=== PATIENT | male | born 1950 | race Caucasian/White ===

== ENCOUNTER 2020-06-21 21:33 | Emergency (ER) | payer MEDICARE, SELFPAY ==
[2020-06-21 21:40] VITALS: BP 196/102; PULSE 70; RESP 18; TEMP 36.3; O2SAT 96; BMI 23.0
--- NOTE | 2020-06-21 22:02 | W.ED.FALL ---
Documented by User: MERLY Kasper 06/22/20 00:28 HPI - Fall General: Chief Complaint: Fall Stated Complaint: FELL/FACE PLANTED-NOSE BLEEDING, FACIAL BLEEDING Time Seen by Provider: 06/21/20 22:02 Source: patient Mode of arrival: ambulatory Limitations: no limitations History of Present Illness: HPI Narrative: Patient is a nice 70-year-old male who presents to ED today along with his for complaints of a fall and facial injury. Patient tells me he accidentally tripped and fell and landed directly on his face. No LOC. He takes Plavix daily. He does not complain of a headache or visual changes. No neck pain. complaint: fall Onset (ago): hour(s) Fall from: standing Fall witnessed: yes, by family Place fall occurred: home Loss of consciousness: None Prolonged down time: no Symptoms prior to fall: none Context: tripped/slipped Location of injury: face Associated symptoms-after fall: Reports no associated symptoms; Denies chest pain, headache(s) or neck pain Review of Systems Const: Denies: fever(s) Eyes: Denies: change in vision, blurry vision, photophobia, floaters or seeing flashes ENMT: Reports: epistaxis (current nose bleed) and sinus pain; Denies: throat pain, odynophagia or ear or mastoid pain Card: Denies: chest pain Resp: Denies: dyspnea GI: Denies: nausea or vomiting Musc: Denies: neck pain or back pain Neuro: Denies: headache(s), numbness in extremities, weakness in extremities or sensory changes [facility] ED PFSH: Medical History (Updated 06/21/20 @ 23:42 by MERLY Kasper) CAD (coronary artery disease) HTN (hypertension) with goal to be determined Systolic heart failure Surgical History S/P PTCA (percutaneous transluminal coronary angioplasty) Social History Smoking and tobacco status: current every day smoker Physical Exam Const: COMMON NORMALS: no acute distress, average body habitus, patient oriented x3, no limitations, healthy appearing, alert and well nourished GENERAL APPEARANCE: cooperative ORIENTATION/CONSCIOUSNESS: Yes awake, Yes oriented to person, Yes oriented to place and Yes oriented to time HENMT: COMMON NORMALS: normocephalic, hearing grossly normal bilaterally, external ears normal, EAC's normal and TM's normal bilaterally HEAD & SCALP: normocephalic FACE & SINUS: other (see below) NOSE: Epistaxis present EXTERNAL EAR: Yes external ears normal EXTERNAL AUDITORY CANAL: EAC's normal TYMPANIC MEMBRANE: TM's normal bilaterally TEETH & GINGIVA: Yes edentulous and Yes other (bilateral upper and lower gingival contusions) OTHER: pt has nasal swelling/contusion; he has mild abrasions to central forehead and bridge on nose; he has fresh blood to R nare but no active bleeding; no septal hematoma; he has bilateral inferior orbital ecchymosis; one small 2mm upper lip laceration that normally would not require repair but one stitch placed to help with oozing; edentulous and has fairly significant gingival contusions but no intraoral injury/laceration noted Eye: COMMON NORMALS: Equal, round and reactive pupils present and EOMs intact bilaterally GENERAL EYE: normal light reflex VISUAL ACUITY: Yes acuity normal PERIORBITAL: periorbital findings abnormal (bilateral inferior ecchymosis ) PUPIL: Yes Equal, round and reactive pupils present DIRECT OPHTHALMOSCOPY: Yes normal light reflex OTHER: no globe injury present Neck/C-Spine: COMMON NORMALS: full ROM CERVICAL SPINE: Yes cervical ROM normal, No pain with cervical ROM and No Cervical spine tenderness Neuro: HUY COMA SCALE: document GCS findings Huy coma scale eye opening: Spontaneous Huy coma scale verbal response: Orientated Huy coma scale motor response: Obey commands Pettigrew coma scale total score: 15 COMMON NORMALS: patient oriented x3 SENSORIUM/ORIENTATION: Yes alert, Yes oriented to person, Yes oriented to place and Yes oriented to time Course Vital Signs: Vital signs: Vital Signs Temperature 98.1 F 06/21/20 22:41 Pulse Rate 70 06/21/20 23:00 Respiratory Rate 16 06/21/20 23:26 Blood Pressure 233/115 06/21/20 22:41 Pulse Oximetry 98 06/21/20 23:59 MDM - Fall MDM Narrative: Medical decision making narrative: Bleeding controlled. Discussed CT findings with Dr. Sahu who agrees patient is stable for outpatient follow-up with ENT/Dr. Cueto. He is not having any difficulty breathing or swallowing. Discussed using ice to face to help with swelling and oozing. Will cover with antibiotics. Information placed with case management. Strict return to ED precautions given. Imaging Data^: CT Head: Radiologist's impression: [address] [address] [address] Scan Report Signed Patient: Bolivar Combs Unit #: [id number] : 1950 Age/Sex: 70 / M ADM Date: 06/21/20 Loc: ER Room/Bed: Attending Dr: Ordering Provider/Ordering MD: Sarina Shields Date of Service: 06/21/20 Procedure(s): CT head wo con* [id number] Accession Number(s): [id number] Report Number: [id number] PROCEDURE INFORMATION: Exam: CT Head Without Contrast Exam date and time: 06/21/2020 10:15 PM Age: 70 years old Clinical indication: Injury or trauma; Blunt trauma (contusions or hematomas); Patient HX: Fall-face planted, nose bleed, bruising around bilateral eyes, hematoma on forehead; Additional info: Trauma/fall TECHNIQUE: Imaging protocol: Computed tomography of the head without contrast. Radiation optimization: All CT scans at this facility use at least one of these dose optimization techniques: automated exposure control; mA and/or kV adjustment per patient size (includes targeted exams where dose is matched to clinical indication); or iterative reconstruction. COMPARISON: CT head wo con* [id number] 11/10/2018 5:38 PM RADIATION DOSE METRICS: Total DLP (mGy-cm): 924.82 FINDINGS: Brain: There is moderate cerebral atrophy. There is marked diffuse heterogeneity of the white matter attenuation, consistent with severe chronic white matter ischemic changes. No intracranial hemorrhage. No midline shift of brain. No cerebral sulcal effacement. Yip matter and white matter interfaces are preserved. Cerebral ventricles: No ventriculomegaly. Bones/joints: Depressed, bilateral nasal bone fracture deformities. Angulated fractures of the osseous nasal septum. Paranasal sinuses: Scattered hemorrhage in the paranasal sinuses. Mastoid air cells: Visualized mastoid air cells are well aerated. Soft tissues: Small focal hematoma in the frontal scalp to the right of midline. Nasal cavity: Diffuse fluid and hemorrhage in the nasal passageways in the posterior nasopharynx. CT/CT head wo con* [id number] IMPRESSION: 1. Negative for intracranial hemorrhage. 2. Nasal bone fractures and osseous nasal septal fracture with frontal scalp hematoma and hemorrhage within paranasal sinuses as well nasal passageways extending into the posterior nasopharynx. Radiation Dose CTDIVOL = (mGy): DLP = 924.82 (mGy-cm) Dictated By: Arturo Raman Signed By: Arturo Raman Signed Date/Time: 06/21/202252 DD/ 50 CT cervical : Radiologist's impression: [address] [address] [address] Scan Report Signed Patient: Bolivar Combs Unit #: [id number] : 1950 Age/Sex: 70 / M ADM Date: 06/21/20 Loc: ER Room/Bed: Attending Dr: Ordering Provider/Ordering MD: Sarina Shields Date of Service: 06/21/20 Procedure(s): CT cervical spin wo con* [id number] Accession Number(s): [id number] Report Number: [id number] PROCEDURE INFORMATION: Exam: CT Cervical Spine Without Contrast Exam date and time: 06/21/2020 10:15 PM Age: 70 years old Clinical indication: Injury or trauma; Blunt trauma; Injury details: Fall-face planted, nose bleed, bruising around bilateral eyes, hematoma on forehead; Additional info: Trauma/fall TECHNIQUE: Imaging protocol: Computed tomography images of the cervical spine without contrast. Radiation optimization: All CT scans at this facility use at least one of these dose optimization techniques: automated exposure control; mA and/or kV adjustment per patient size (includes targeted exams where dose is matched to clinical indication); or iterative reconstruction. COMPARISON: CTA Head/Neck [id number] 11/10/2018 7:40 PM RADIATION DOSE METRICS: Total DLP (mGy-cm): 391.49 FINDINGS: Vertebrae: No cervical spine fractures. Unremarkable alignment.The cervical spine demonstrates marked degenerative changes at multiple levels. Soft tissues: Unremarkable. Sinuses: Hemorrhage within the sphenoid sinus. Nasopharynx: Hemorrhage within the nasal passageways and the posterior nasopharynx. Vasculature: Bilateral carotid artery bulb region atherosclerotic calcifications. Lungs: Lung apices are normal. CT/CT cervical spin wo con* [id number] IMPRESSION: No acute cervical spine fracture. Radiation Dose CTDIVOL = (mGy): DLP = 391.49 (mGy-cm) Dictated By: Arturo Raman Signed By: Arturo Raman Signed Date/Time: 06/21/202255 DD/ 53 CT facial : Radiologist's impression: [address] [address] [address] Scan Report Signed Patient: Bolivar Combs Unit #: [id number] : 1950 Age/Sex: 70 / M ADM Date: 06/21/20 Loc: ER Room/Bed: Attending Dr: Ordering Provider/Ordering MD: Sarina Shields Date of Service: 06/21/20 Procedure(s): CT facial bones wo con* [id number] Accession Number(s): [id number] Report Number: [id number] PROCEDURE INFORMATION: Exam: CT Maxillofacial Without Contrast Exam date and time: 06/21/2020 10:15 PM Age: 70 years old Clinical indication: Injury or trauma; Blunt trauma (contusions or hematomas); Forehead and nose and orbit/periorbital and maxilla; Patient HX: Fall-face planted, nose bleed, bruising around bilateral eyes, hematoma on forehead; Additional info: Trauma/fall TECHNIQUE: Imaging protocol: Computed tomography images of the face without contrast. Radiation optimization: All CT scans at this facility use at least one of these dose optimization techniques: automated exposure control; mA and/or kV adjustment per patient size (includes targeted exams where dose is matched to clinical indication); or iterative reconstruction. COMPARISON: No relevant prior studies available. RADIATION DOSE METRICS: Total DLP (mGy-cm): 815.11 FINDINGS: Orbital cavity: Negative for orbital injury. Bones/joints: Depressed bilateral nasal bone fracture deformities. Angulated osseous nasal septal fracture deformity. No fractures of the mandible. Temporomandibular joints have unremarkable alignment. Maxillary sinus maria are grossly intact. Orbital maria are intact. Paranasal sinuses: Scattered hemorrhage in the paranasal sinuses. Soft tissues: Small focal frontal scalp hematoma to the right of midline. Brain: Moderately atrophic brain parenchyma. Nasal cavity: Hemorrhage in the nasal passageways. Nasopharynx: Hemorrhage in the posterior nasopharynx. CT/CT facial bones wo con* [id number] IMPRESSION: Acute nasal bone fractures and osseous nasal septal fracture. Radiation Dose CTDIVOL = (mGy): DLP = 815.11 (mGy-cm) Dictated By: Arturo Raman Signed By: Arturo Raman Signed Date/Time: 06/21/202254 DD/ 52 Discharge Plan Discharge Patient Disposition: Home Clinical Impression: Fracture of nasal septum Qualifiers: Encounter type: initial encounter Fracture type: closed Qualified Code(s): S02.2XXA - Fracture of nasal bones, initial encounter for closed fracture Closed fracture nasal bone Qualifiers: Encounter type: initial encounter Qualified Code(s): S02.2XXA - Fracture of nasal bones, initial encounter for closed fracture Condition: Stable Prescriptions: New hydrocodone-acetaminophen 5-325 mg tablet 1 tab PO Q4H PRN (Reason: pain) Qty: 20 RF: 0 Augmentin 875-125 mg tablet 1 tab PO Q12H 7 Days Qty: 14 RF: 0 No Action aspirin [Adult Low Dose Aspirin] 81 mg tablet,delayed release (DR/EC) 81 mg PO DAILY RF: 0 magnesium oxide 400 mg magnesium capsule 400 mg PO DAILY RF: 0 nitroglycerin [Nitrostat] 0.4 mg tablet, sublingual 0.4 mg SUBLINGUAL Q5M PRNRF: 0 escitalopram oxalate 10 mg tablet 10 mg PO DAILY RF: 0 valsartan 160 mg tablet 160 mg PO BID Qty: 180 RF: 3 simvastatin [Zocor] 40 mg tablet 40 mg PO QDAY Qty: 90 RF: 3 potassium chloride [Klor-Con 10] 10 mEq tablet extended release 20 meq PO DAILY Qty: 180 RF: 3 carvedilol [Coreg] 12.5 mg tablet 6.25 mg PO BID Qty: 90 RF: 3 furosemide 40 mg tablet 40 mg PO DAILY Qty: 90 RF: 3 clopidogrel 75 mg tablet 75 mg PO DAILY Qty: 90 RF: 1 Discharge Orders: Discharge ED (Routine); Ordered 06/21/20 Ordered By: Sarina Shields Referrals: José Luis Cueto MD [Physician] - Blue Ricks MD [Primary Care Provider] - Patient Instructions: Nasal Fracture (ED) Activity Restrictions/Additional Instructions: You need to apply ice to your nose and face as much as possible to help with swelling and bleeding. Case management should contact you on Wednesday to set you up with ENT/Dr. Cueto. You need to return to the emergency department immediately for uncontrollable bleeding, severe headache, trouble swallowing, trouble breathing, or any other concerns you may have. Coding Level of Care Code ED Jig Borer for Chg Fwd Exam Detailed Documented by User: Jd Sahu DO 06/22/20 05:25 HPI - Fall General: Chief Complaint: Fall Stated Complaint: FELL/FACE PLANTED-NOSE BLEEDING, FACIAL BLEEDING Time Seen by Provider: 06/21/20 22:02 [facility] ED PFSH: Medical History (Updated 06/21/20 @ 23:42 by MERLY Kasper) CAD (coronary artery disease) HTN (hypertension) with goal to be determined Systolic heart failure Surgical History S/P PTCA (percutaneous transluminal coronary angioplasty) Social History Smoking and tobacco status: current every day smoker Course Vital Signs: Vital signs: Vital Signs Temperature 98.1 F 06/21/20 22:41 Pulse Rate 70 06/21/20 23:00 Respiratory Rate 16 06/21/20 23:26 Blood Pressure 233/115 06/21/20 22:41 Pulse Oximetry 98 06/21/20 23:59 MDM - Fall MDM Narrative: Medical decision making narrative: 70-year-old male seen by Mrs. Shields?QUYEN Dee. I agree with her history, work-up, and treatment. This patient will be referred as an outpatient to ENT surgery. Discharge Plan Discharge Patient Disposition: Home Clinical Impression: Fracture of nasal septum Qualifiers: Encounter type: initial encounter Fracture type: closed Qualified Code(s): S02.2XXA - Fracture of nasal bones, initial encounter for closed fracture Closed fracture nasal bone Qualifiers: Encounter type: initial encounter Qualified Code(s): S02.2XXA - Fracture of nasal bones, initial encounter for closed fracture Condition: Stable Prescriptions: New hydrocodone-acetaminophen 5-325 mg tablet 1 tab PO Q4H PRN (Reason: pain) Qty: 20 RF: 0 Augmentin 875-125 mg tablet 1 tab PO Q12H 7 Days Qty: 14 RF: 0 No Action aspirin [Adult Low Dose Aspirin] 81 mg tablet,delayed release (DR/EC) 81 mg PO DAILY RF: 0 magnesium oxide 400 mg magnesium capsule 400 mg PO DAILY RF: 0 nitroglycerin [Nitrostat] 0.4 mg tablet, sublingual 0.4 mg SUBLINGUAL Q5M PRNRF: 0 escitalopram oxalate 10 mg tablet 10 mg PO DAILY RF: 0 valsartan 160 mg tablet 160 mg PO BID Qty: 180 RF: 3 simvastatin [Zocor] 40 mg tablet 40 mg PO QDAY Qty: 90 RF: 3 potassium chloride [Klor-Con 10] 10 mEq tablet extended release 20 meq PO DAILY Qty: 180 RF: 3 carvedilol [Coreg] 12.5 mg tablet 6.25 mg PO BID Qty: 90 RF: 3 furosemide 40 mg tablet 40 mg PO DAILY Qty: 90 RF: 3 clopidogrel 75 mg tablet 75 mg PO DAILY Qty: 90 RF: 1 Discharge Orders: Discharge ED (Routine); Ordered 06/21/20 Ordered By: Sarina Shields Referrals: José Luis Cueto MD [Physician] - Blue Ricks MD [Primary Care Provider] - Patient Instructions: Nasal Fracture (ED) Activity Restrictions/Additional Instructions: You need to apply ice to your nose and face as much as possible to help with swelling and bleeding. Case management should contact you on Wednesday to set you up with ENT/Dr. Cueto. You need to return to the emergency department immediately for uncontrollable bleeding, severe headache, trouble swallowing, trouble breathing, or any other concerns you may have. Coding Level of Care Code ED Jig Borer for Chg Fwd Exam Detailed
--- NOTE | 2020-06-21 22:09 | CTR_ITS ---
PROCEDURE INFORMATION: Exam: CT Head Without Contrast Exam date and time: 06/21/2020 10:15 PM Age: 70 years old Clinical indication: Injury or trauma; Blunt trauma (contusions or hematomas); Patient HX: Fall-face planted, nose bleed, bruising around bilateral eyes, hematoma on forehead; Additional info: Trauma/fall TECHNIQUE: Imaging protocol: Computed tomography of the head without contrast. Radiation optimization: All CT scans at this facility use at least one of these dose optimization techniques: automated exposure control; mA and/or kV adjustment per patient size (includes targeted exams where dose is matched to clinical indication); or iterative reconstruction. COMPARISON: CT head wo con* [id number] 11/10/2018 5:38 PM RADIATION DOSE METRICS: Total DLP (mGy-cm): 924.82 FINDINGS: Brain: There is moderate cerebral atrophy. There is marked diffuse heterogeneity of the white matter attenuation, consistent with severe chronic white matter ischemic changes. No intracranial hemorrhage. No midline shift of brain. No cerebral sulcal effacement. Yip matter and white matter interfaces are preserved. Cerebral ventricles: No ventriculomegaly. Bones/joints: Depressed, bilateral nasal bone fracture deformities. Angulated fractures of the osseous nasal septum. Paranasal sinuses: Scattered hemorrhage in the paranasal sinuses. Mastoid air cells: Visualized mastoid air cells are well aerated. Soft tissues: Small focal hematoma in the frontal scalp to the right of midline. Nasal cavity: Diffuse fluid and hemorrhage in the nasal passageways in the posterior nasopharynx. CT/CT head wo con* [id number] IMPRESSION: 1. Negative for intracranial hemorrhage. 2. Nasal bone fractures and osseous nasal septal fracture with frontal scalp hematoma and hemorrhage within paranasal sinuses as well nasal passageways extending into the posterior nasopharynx. Radiation Dose CTDIVOL = (mGy): DLP = 924.82 (mGy-cm)
--- NOTE | 2020-06-21 22:09 | CTR_ITS ---
PROCEDURE INFORMATION: Exam: CT Maxillofacial Without Contrast Exam date and time: 06/21/2020 10:15 PM Age: 70 years old Clinical indication: Injury or trauma; Blunt trauma (contusions or hematomas); Forehead and nose and orbit/periorbital and maxilla; Patient HX: Fall-face planted, nose bleed, bruising around bilateral eyes, hematoma on forehead; Additional info: Trauma/fall TECHNIQUE: Imaging protocol: Computed tomography images of the face without contrast. Radiation optimization: All CT scans at this facility use at least one of these dose optimization techniques: automated exposure control; mA and/or kV adjustment per patient size (includes targeted exams where dose is matched to clinical indication); or iterative reconstruction. COMPARISON: No relevant prior studies available. RADIATION DOSE METRICS: Total DLP (mGy-cm): 815.11 FINDINGS: Orbital cavity: Negative for orbital injury. Bones/joints: Depressed bilateral nasal bone fracture deformities. Angulated osseous nasal septal fracture deformity. No fractures of the mandible. Temporomandibular joints have unremarkable alignment. Maxillary sinus maria are grossly intact. Orbital maria are intact. Paranasal sinuses: Scattered hemorrhage in the paranasal sinuses. Soft tissues: Small focal frontal scalp hematoma to the right of midline. Brain: Moderately atrophic brain parenchyma. Nasal cavity: Hemorrhage in the nasal passageways. Nasopharynx: Hemorrhage in the posterior nasopharynx. CT/CT facial bones wo con* [id number] IMPRESSION: Acute nasal bone fractures and osseous nasal septal fracture. Radiation Dose CTDIVOL = (mGy): DLP = 815.11 (mGy-cm)
--- NOTE | 2020-06-21 22:09 | CTR_ITS ---
PROCEDURE INFORMATION: Exam: CT Cervical Spine Without Contrast Exam date and time: 06/21/2020 10:15 PM Age: 70 years old Clinical indication: Injury or trauma; Blunt trauma; Injury details: Fall-face planted, nose bleed, bruising around bilateral eyes, hematoma on forehead; Additional info: Trauma/fall TECHNIQUE: Imaging protocol: Computed tomography images of the cervical spine without contrast. Radiation optimization: All CT scans at this facility use at least one of these dose optimization techniques: automated exposure control; mA and/or kV adjustment per patient size (includes targeted exams where dose is matched to clinical indication); or iterative reconstruction. COMPARISON: CTA Head/Neck [id number] 11/10/2018 7:40 PM RADIATION DOSE METRICS: Total DLP (mGy-cm): 391.49 FINDINGS: Vertebrae: No cervical spine fractures. Unremarkable alignment.The cervical spine demonstrates marked degenerative changes at multiple levels. Soft tissues: Unremarkable. Sinuses: Hemorrhage within the sphenoid sinus. Nasopharynx: Hemorrhage within the nasal passageways and the posterior nasopharynx. Vasculature: Bilateral carotid artery bulb region atherosclerotic calcifications. Lungs: Lung apices are normal. CT/CT cervical spin wo con* [id number] IMPRESSION: No acute cervical spine fracture. Radiation Dose CTDIVOL = (mGy): DLP = 391.49 (mGy-cm)
[2020-06-21] MEDS: tetanus-diphtheria tox (adult) 0.5 mL SDV IM (22:35)
[2020-06-21 22:41] VITALS: BP 233/115; PULSE 70; RESP 16; TEMP 36.7; O2SAT 96
[2020-06-21 23:00] VITALS: PULSE 70; O2SAT 94
[2020-06-21 23:26] VITALS: RESP 16
[2020-06-21] MEDS: morphine 4 mg/mL SDV 1 mL IM (23:26)
[2020-06-21] MEDS: HYDROcodone-acetaminophen 5-325 mg Tablet 2 TAB PO (23:58)
[2020-06-21 23:59] VITALS: O2SAT 98
--- NOTE | 2020-06-24 12:20 | DCPLANNER ---
import customer service manager had message to schedule a follow up appointment for patient with Dr. Cueto, ENT for a fracture of nasal septum. import customer service manager emailed patients information to Ruby Gonzalez and Mercedes at [facility] ENT, General Surgery. Patients information will be printed and reviewed. Clinic will call patient with appointment information.
--- NOTE | 2020-06-26 08:00 | DCPLANNER ---
Patient had a follow up appointment scheduled for 06.25.20 with ENT, Dr. Cueto - patient attended appointment.
== END 2020-06-22 | disposition home or self-care (01) ==
PROVIDERS: Emergency Provider Physician Assistant; PCP Family Medicine
DX: S02.2XXA Fracture of nasal bones, initial encounter for closed fracture (principal); Z79.02 Long term (current) use of antithrombotics/antiplatelets; Z79.82 Long term (current) use of aspirin; W01.198A Fall on same level from slipping, tripping and stumbling with subsequent striking against other object, initial encounter; I25.10 Atherosclerotic heart disease of native coronary artery without angina pectoris; I11.0 Hypertensive heart disease with heart failure; I50.20 Unspecified systolic (congestive) heart failure; Z23 Encounter for immunization
CPT/HCPCS: 70450; 70486; 72125; 90471; 90714; 96372; 99283; J2270

== ENCOUNTER 2020-06-27 22:34 | Emergency (ER) | payer MEDICARE, SELFPAY ==
[2020-06-27 22:41] VITALS: BP 221/100; PULSE 69; RESP 18; TEMP 37; O2SAT 98; BMI 22.0
[2020-06-27 23:19] LABS: Basophils % 0.6 %; Eosinophils # 0.2 10^3/uL (0.0-0.8); Eosinophils % 3.2 %; Hematocrit 36.9 % (42.0-52.0); Hemoglobin 12.5 g/dL (11.7-16.6); Lymphocytes # 2.3 10^3/uL (0.8-4.8); Lymphocytes % 35.2 %; Mean Corpuscular HGB Conc 33.9 g/dL (30.0-36.0); Mean Corpuscular Hemoglobin 30.3 pg (28.0-34.0); Mean Corpuscular Volume 89.6 fL (80-94); Mean Platelet Volume 10.5 fL (7.4-10.4); Monocytes # 0.7 10^3/uL (0.2-0.9); Monocytes % 11.3 %; Neutrophils # 3.17 10^3/uL (1.8-7.7); Neutrophils % 49.1 %; Nucleated Red Blood Cells % 0 %; Platelet Count 245 10^3/cmm (130-400); Red Blood Count 4.12 10^6/uL (4.1-5.3); Red Cell Distribution Width 13.1 % (12.1-15.1); White Blood Count 6.5 10^3/uL (4.0-10.0)
[2020-06-27] MEDS: oxymetazoline 0.05% Nasal Spray 15 mL 2 SPRAY NOSTRIL-B (23:24)
[2020-06-27] MEDS: sodium chloride 0.9% 1,000 ML 150 ML IV (23:24)
[2020-06-27 23:32] LABS: INR 1.05 (0.8-1.2)
[2020-06-27 23:33] LABS: Partial Thromboplastin Time 30.5 SECONDS (23.9-36.7)
[2020-06-27 23:38] LABS: Alanine Aminotransferase 24 U/L (0-41); Alkaline Phosphatase 81 IU/L (40-130); Anion Gap 11.4 (5-19); Aspartate Amino Transferase 30 U/L (0-40); Blood Urea Nitrogen 11 mg/dL (8-23); Calcium 8.6 mg/dL (8.5-10.5); Carbon Dioxide 32 mmol/L (22-29); Chloride 101 mmol/L (98-107); Globulin 2.5 g/dL (1.3-4.6); Glomerular Filtration Rate 66.4 mL/min (90-130); Glucose 100 mg/dL (65-115); Osmolality Calculated 291 mOsm/kg (285-295); Potassium 3.4 mmol/L (3.5-5.1); Sodium 141 mmol/L (136-145); Total Bilirubin 0.7 mg/dL (0.15-1.2); Total Protein 6.5 g/dL (6.6-8.7)
--- NOTE | 2020-06-27 23:45 | W.ED.EPISTAX ---
HPI - Epistaxis General: Chief complaint: Epistaxis Stated complaint: FALL EARS AND NOSE BLEEDS Time Seen by Provider: 06/27/20 23:08 Source: patient and family Mode of arrival: ambulatory Limitations: no limitations History of Present Illness: HPI Narrative: 70-year-old male patient presents to the emergency department with nosebleed and left ear bleed. He sustained a fall approximately 1 week ago, sustained nasal fractures, scheduled for surgery next Wednesday with Dr. Cueto -he reports perforated left eardrum. He did not sustain a fall tonight, denies recent injury. He states was leaning over a gate when his nose started to bleed. He states was to stop his aspirin and Plavix but forgot to take them out of his pillbox. He states his last dose was today. Nosebleed started at 1630 today MD complaint: epistaxis Location: bilateral nostril Duration: constant Context: history of previous, aspirin use and other anticoagulant use Associated symptoms: Reports no associated symptoms; Deny fever(s), headache(s) or vomiting Treatment prior to arrival: nose pinching Review of Systems General: Reports: 10 or more systems reviewed and unremarkable except in HPI and below Const: Denies: fever(s), chills or diaphoresis Eyes: Denies: blurry vision or eye redness ENMT: Reports: ear discharge and epistaxis; Denies: throat pain, dental pain, ear or mastoid pain, disequilibrium, nasal congestion or post nasal drip Card: Denies: chest pain, palpitations or irregular heart rhythm Resp: Denies: dyspnea, productive cough, non-productive cough or wheezing GI: Denies: abdominal pain, nausea or vomiting : Denies: dysuria Musc: Denies: neck pain, back pain, joint pain or joint warmth Skin/Breast: Denies: rash or pruritus Neuro: Denies: headache(s), weakness in extremities or behavioral changes Psych: Denies: anxiety, depression or change in appetite Tee/Lymph: Denies: easy bruising [facility] ED PFSH: Medical History (Updated 06/28/20 @ 01:49 by LEON Church) CAD (coronary artery disease) HTN (hypertension) with goal to be determined Systolic heart failure Surgical History S/P PTCA (percutaneous transluminal coronary angioplasty) Social History Smoking and tobacco status: current every day smoker Physical Exam Const: COMMON NORMALS: no acute distress, patient oriented x3, alert and well nourished GENERAL APPEARANCE: cooperative, comfortable, well kempt, frail appearing and well hydrated; not anxious and not ill appearing NUTRITIONAL APPEARANCE: thin ORIENTATION/CONSCIOUSNESS: Yes awake, Yes oriented to person, Yes oriented to place and Yes oriented to time HENMT: COMMON NORMALS: normocephalic, atraumatic and hearing grossly normal bilaterally HEAD & SCALP: normal to inspection, normocephalic and atraumatic FACE & SINUS: sinuses nontender, face symmetric, abrasion (nose) and ecchymosis bilaterally NOSE: Epistaxis present bilaterally EXTERNAL AUDITORY CANAL: Abnormal EAC present EAC laterality: left Details: otic discharge Details: bloody TYMPANIC MEMBRANE: TM normal on the right MOUTH: lip normal and tongue normal; no drooling and no muffled voice THROAT: uvula midline, postnasal drainage and other (bleeding from posterior epistaxis) Eye: COMMON NORMALS: Equal, round and reactive pupils present and EOMs intact bilaterally GENERAL EYE: appearance normal, both eyes and all related structures PUPIL: Yes Equal, round and reactive pupils present Neck/C-Spine: COMMON NORMALS: full ROM and no lymphadenopathy GENERAL: Yes normal visual inspection and Yes trachea midline CERVICAL SPINE: Yes cervical ROM normal Lymph: LYMPHATIC: no lymphadenopathy noted Chest: COMMONS NORMALS: normal inspection of the chest and normal palpation of entire chest wall Resp: COMMON NORMALS: normal respiratory effort, No retractions, No use of accessory muscles and clear to auscultation bilaterally EFFORT & INSPECTION: Yes able to speak in complete sentences AUSCULTATION: clear to auscultation bilaterally Cardio: COMMON NORMALS: regular rate, regular rhythm, S1 normal heart sound present, S2 normal heart sound present and Peripheral pulses 2+ throughout RATE: regular rate RHYTHM: regular rhythm HEART SOUNDS: S1 normal heart sound present and S2 normal heart sound present PERIPHERAL PULSES: Peripheral pulses 2+ throughout GI: COMMON NORMALS: Soft to palpation and non-tender INSPECTION: Yes normal to inspection PALPATION: Yes Soft to palpation : COMMON NORMALS: Yes no CVA tenderness BLADDER/KIDNEY EXAM: Yes no CVA tenderness Back/Pelvis: COMMON NORMALS: no CVA tenderness and thoracic and lumbar spine normal to inspection Extremity: COMMON NORMALS: normal to inspection and capillary refill normal Neuro: COMMON NORMALS: patient oriented x3 and no focal motor deficits SENSORIUM/ORIENTATION: Yes alert, Yes oriented to person, Yes oriented to place and Yes oriented to time Psych: COMMON NORMALS: mental status grossly normal, Normal thought process present and cooperative APPEARANCE: Yes well kempt ACTIVITY/MOTOR BEHAVIOR: Yes appropriate eye contact THOUGHT PROCESS: Normal thought process present Skin: COMMON NORMALS: no rashes or lesions noted and turgor normal GENERAL SKIN EXAM: no rashes or lesions noted and turgor normal Course ED course: 70-year-old male patient presents to the emergency department with nosebleed. Recent evaluation in the ED for nasal fractures with ENT follow-up -sudden onset of spontaneous bleeding that started today at 1630. CBC was normal, chemistry unremarkable, he remains on Augmentin for prophylactic antibiotic. Afrin spray did not stop bleeding, nasal tampon with difficult insertion, Dr. Juan evaluated the patient in the ED with continued difficulty with insertion of anterior/posterior Rhino. Packing attempted but unsuccessful, TXA was administered in the ED IV per Dr. Juan, bleeding very minimal after administration of medication. He did not complain of chest pain. Blood pressure was found to be elevated, he was treated with hydralazine. Patient states has a appointment with cardiology next week due to continued hypertension. Patient was advised to stop aspirin and Plavix. He is scheduled for surgery on Wednesday. 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 Advised Afrin spray to stop bleeding but states will probably not help, advised to ensure patient stops aspirin and Plavix as advised -apply packing as necessary. Time: 23:20 Vital Signs: Vital signs: Vital Signs Temperature 98.6 F 06/27/20 22:41 Pulse Rate 74 06/28/20 01:38 Respiratory Rate 16 06/28/20 01:38 Blood Pressure 152/75 06/28/20 01:38 Pulse Oximetry 95 06/28/20 01:38 MDM - Epistaxis Lab Data: Labs: Lab Results 06/27/20 06/27/20 06/27/20 Range/Units 23:12 23:12 23:12 WBC 6.5 (4.0-10.0) 10^3/ uL RBC 4.12 (4.1-5.3) 10^6/u L Hgb 12.5 (11.7-16.6) g/dL Hct 36.9 L (42.0-52.0) % MCV 89.6 (80-94) fL MCH 30.3 (28.0-34.0) pg MCHC 33.9 (30.0-36.0) g/dL RDW 13.1 (12.1-15.1) % Plt Count 245 (130-400) 10^3/c mm MPV 10.5 H (7.4-10.4) fL Neut % (Auto) 49.1 % Lymph % (Auto) 35.2 % [place] % (Auto) 11.3 % Eos % (Auto) 3.2 % Baso % (Auto) 0.6 % Neut # (Auto) 3.17 (1.8-7.7) 10^3/u L Lymph # (Auto) 2.3 (0.8-4.8) 10^3/u L [place] # (Auto) 0.7 (0.2-0.9) 10^3/u L Eos # (Auto) 0.2 (0.0-0.8) 10^3/u L Baso # (Auto) 0.0 (0.0-0.1) 10^3/u L Nucleated RBC % (a uto) 0 % Nucleated RBCs # 0.0 /100WBC PT 14.00 (12.1-14.9) SECO NDS INR 1.05 (0.8-1.2) APTT 30.5 (23.9-36.7) SECO NDS Sodium 141 (136-145) mmol/L Potassium 3.4 L (3.5-5.1) mmol/L Chloride 101 (98-107) mmol/L Carbon Dioxide 32 H (22-29) mmol/L Anion Gap 11.4 (5-19) BUN 11 (8-23) mg/dL Creatinine 1.1 (0.7-1.2) mg/dL GFR Calculation 66.4 L (90-130) mL/min Glucose 100 (65-115) mg/dL Calculated Osmolal ity 291 (285-295) mOsm/k g Calcium 8.6 (8.5-10.5) mg/dL Total Bilirubin 0.7 (0.15-1.2) mg/dL AST 30 (0-40) U/L ALT 24 (0-41) U/L Alkaline Phosphata se 81 (40-130) IU/L Total Protein 6.5 L (6.6-8.7) g/dL Albumin 4.0 (3.5-5.2) g/dL Globulin 2.5 (1.3-4.6) g/dL Discharge Plan Discharge Patient Disposition: Home Clinical Impression: Epistaxis, HTN (hypertension) with goal to be determined Condition: Stable Prescriptions: Discontinued aspirin [Adult Low Dose Aspirin] 81 mg tablet,delayed release (DR/EC) 81 mg PO DAILY RF: 0 clopidogrel 75 mg tablet 75 mg PO DAILY Qty: 90 RF: 1 No Action magnesium oxide 400 mg magnesium capsule 400 mg PO DAILY RF: 0 nitroglycerin [Nitrostat] 0.4 mg tablet, sublingual 0.4 mg SUBLINGUAL Q5M PRNRF: 0 escitalopram oxalate 10 mg tablet 10 mg PO DAILY RF: 0 valsartan 160 mg tablet 160 mg PO BID Qty: 180 RF: 3 simvastatin [Zocor] 40 mg tablet 40 mg PO QDAY Qty: 90 RF: 3 potassium chloride [Klor-Con 10] 10 mEq tablet extended release 20 meq PO DAILY Qty: 180 RF: 3 carvedilol [Coreg] 12.5 mg tablet 6.25 mg PO BID Qty: 90 RF: 3 furosemide 40 mg tablet 40 mg PO DAILY Qty: 90 RF: 3 hydrocodone-acetaminophen 5-325 mg tablet 1 tab PO Q4H PRN (Reason: pain) Qty: 20 RF: 0 Augmentin 875-125 mg tablet 1 tab PO Q12H 7 Days Qty: 14 RF: 0 Discharge Orders: Discharge ED (Routine); Ordered 06/28/20 Ordered By: Lis Rudd Referrals: Blue Ricks MD [Primary Care Provider] - Discharge Diet: Usual diet Discharge Activity: Limit activity as instructed Patient Instructions: Nasal Fracture (ED), Epistaxis (ED), Opioid Safety Activity Restrictions/Additional Instructions: Do NOT blow your nose call ENT TOMORROW STop Aspirin and Plavix cool compresses to the nose several times daily to help with pain Do not take NSAIDs such as Tylenol, Aleve or naproxen as bleeding can occur May take Tylenol for pain Follow-up with your primary care provider next week for blood pressure findings Continue follow-up with cardiology as scheduled for hypertension. Coding Level of Care Code ED Community Services Coordinator for Armando Fwd Exam Comprehensive
[2020-06-27 23:51] VITALS: BP 202/105; PULSE 64; RESP 16; O2SAT 97
[2020-06-28] MEDS: ondansetron 2 mg/ML SDV 2 mL 4 MG IVP (00:01)
[2020-06-28 00:03] VITALS: RESP 16
[2020-06-28] MEDS: fentaNYL 50 mcg/mL INJ 2mL IVP (00:03)
[2020-06-28] MEDS: hyDRALAzine 20 mg/mL INJ 1 mL 10 MG IVP (00:39)
[2020-06-28 00:48] VITALS: BP 190/101; PULSE 69; RESP 16; O2SAT 93
[2020-06-28 01:38] VITALS: BP 152/75; PULSE 74; RESP 16; O2SAT 95
[2020-06-28 02:17] VITALS: PULSE 74; RESP 16; O2SAT 94
== END 2020-06-28 02:00 | disposition home or self-care (01) ==
PROVIDERS: Emergency Provider Nurse Practitioner Family; PCP Family Medicine
DX: R04.0 Epistaxis (principal); I10 Essential (primary) hypertension; Z79.82 Long term (current) use of aspirin; Z79.02 Long term (current) use of antithrombotics/antiplatelets; I25.10 Atherosclerotic heart disease of native coronary artery without angina pectoris; F17.210 Nicotine dependence, cigarettes, uncomplicated
CPT/HCPCS: 80053; 85025; 85610; 85730; 96365; 96375; 99284; J0360; J2405; J3010; J7030

== ENCOUNTER → 2020-06-28 14:22 | Outpatient (BNVA) | payer MEDICARE, SELFPAY | PROVIDERS: PCP Family Medicine; Visit Provider Otolaryngology | DX: Z01.812 Encounter for preprocedural laboratory examination (principal); Z20.822 Contact with and (suspected) exposure to COVID-19 | CPT/HCPCS: 87635 ==

== ENCOUNTER 2020-07-03 08:59 | Day surgery (SDC) | payer MEDICARE, SELFPAY ==
[2020-07-02 14:56] VITALS: BMI 21.9
[2020-07-03] VITALS (7 sets, daily range): BP systolic 141–190; BP diastolic 79–102; PULSE 57–68; RESP 16–19; TEMP 36.3–36.9; O2SAT 95–100
--- NOTE | 2020-07-03 09:36 | W.PM.OPSUD ---
Surgery/Procedure H&P Update DATE OF PROCEDURE: July 03, 2020 DATE H&P PERFORMED: 06/25/20 H&P UPDATE INFORMATION: I have reviewed H&P completed within last 30 days, I have examined patient prior to procedure and No changes to prior documentation CHANGES TO PREVIOUS DOCUMENTATION: No changes PREOP DIAGNOSIS: Nasal and septal fractures Both displaced PRIMARY INDICATION FOR PROCEDURE: Displaced nasal and septal fracture with nasal obstruction PLANNED PROCEDURE: Operation Date: 07/03/20 10:40 Proposed Procedures p Open Reduction Nasal Fracture with Open Treatment Septal Fracture M95.0 J34.2 26679(Not Applicable) - José Luis Cueto MD
--- NOTE | 2020-07-03 09:44 | ECG_ITS ---
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 Measurements Intervals [place] Rate: 60 P: 41 SC: 146 QRS: 21 QRSD: 102 T: 135 QT: 455 QTc: 456 Interpretive Statements SINUS RHYTHM ST DEVIATION AND MODERATE T-WAVE ABNORMALITY, CONSIDER ANTEROLATERAL ISCHEMIA [-0.1+ mV T WAVE IN V3-V6] Compared to ECG 11/10/2018 17:33:10 T-wave abnormality now present Possible ischemia now present Myocardial infarct finding no longer present Electronically Signed On 07-04-2020 9:29:20 CDT by Asim Herrera M.D. [id number]
[2020-07-03] MEDS: sodium chloride 0.9% 1,000 ML 30 ML IV (09:56)
--- NOTE | 2020-07-03 10:32 | W.PM.OPSUD ---
Surgery/Procedure H&P Update DATE OF PROCEDURE: July 03, 2020 DATE H&P PERFORMED: 06/25/20 H&P UPDATE INFORMATION: I have reviewed H&P completed within last 30 days, I have examined patient prior to procedure and No changes to prior documentation PREOP DIAGNOSIS: Nasal and septal fractures Both displaced PRIMARY INDICATION FOR PROCEDURE: Displaced nasal and septal fractures PLANNED PROCEDURE: Operation Date: 07/03/20 10:40 Proposed Procedures p Open Reduction Nasal Fracture with Open Treatment Septal Fracture M95.0 J34.2 60161(Not Applicable) - José Luis Cueto MD
--- NOTE | 2020-07-03 10:53 | P.ANESASSM_ITS ---
Pre-Anesthetic Assessment Pre-Anesthetic Assessment: Height/Weight: Height 1.85 m Weight 75.296 kg Temp Pulse Resp BP Pulse Ox 97.4 F L 68 18 190/102 96 07/03/20 09:30 07/03/20 09:30 07/03/20 09:30 07/03/20 09:30 07/03/20 09:30 Preop Diagnosis: Nasal and septal fractures Both displaced Proposed Procedure: Operation Date: 07/03/20 10:40 Proposed Procedures p Open Reduction Nasal Fracture with Open Treatment Septal Fracture M95.0 J34.2 [id number](Not Applicable) - José Luis Cueto MD Was Beta Baldev taken within 24 hours: Yes Was Clonidine taken within 24 hours: N/A Last intake: Intake Last Liquid Date 07/02/20 Last Liquid Time 23:59 Last Solid Date 07/02/20 Last Solid Time 23:00 Social: Social History: Tobacco and No alcohol Exam: Pre-Anes Outpt Exam: alert, oriented x 3, clear to auscultation bilaterally and regular rate & rhythm Airway: Submandibular: WNL Cervical ROM: WNL MP: 2 Dentition: False Pulmonary: Pulmonary: COPD CV/HEM: CV/HEM: CAD (stent), CHF and HTN Anesthetic Plan: ASA status: 3 Anesthesia: General Risk of > 500 ml bloo d loss (7ml/kg in children): No Meds/Allergies Current Medications: Current Medications Generic Name Dose Route Start Last Admin Trade Name Freq PRN Reason Stop Dose Admin Sodium Chloride 1,000 mls @ 30 ml s/hr 07/03/20 09:15 07/03/20 09:56 Sodium Chloride 0.9% IV 07/04/20 09:14 30 mls/hr .Q24H HANS Administration PFSH Anesthesia PFSH: Medical History (Updated 06/30/20 @ 00:01 by ) CAD (coronary artery disease) HTN (hypertension) with goal to be determined Systolic heart failure Surgical History S/P PTCA (percutaneous transluminal coronary angioplasty) Social History Smoking and tobacco status: current every day smoker Data Anesthesia Cardiac Studies: No Data to Display
[2020-07-03] MEDS: oxymetazoline 0.05% Nasal Spray 15 mL 1 SPRAY NOSTRIL-B (11:40)
[2020-07-03] MEDS: neomycin-poly-bacitracin oint 28 gm 1 APPLIC TOPICAL (11:53)
--- NOTE | 2020-07-03 12:17 | PM.OP ---
Operative Report Date of procedure: July 03, 2020 Pre-op Diagnosis: Nasal and septal fractures Both displaced Post-op diagnosis: same Post-op Findings: Nasal bones fractured and displaced inward. Septum fractured severely anteriorly and cartilage and at the junction of cartilage and bone in the mid to posterior portion. Significant displacement noted. Procedure Done: Open reduction of displaced nasal fracture with concomitant nasal septal fracture reduction. Septoplasty. Implants: 2 septal splints and 2 Telfa packs intranasally. External nasal splint. Pathology: none sent Surgeon: José Luis Cueto Anesthesia: General and Local Estimated blood loss (mL): 20 Complications: No complications Findings: Findings during the procedure show that the external nasal bones are fractured across from right to left and then displaced inward buckling on itself posteriorly. The septum is deflected severely to the left anteriorly and found to have multiple fracture lines in the anteriormost cartilage. There was cartilage overriding across to the left side indicating an old displacement as well. And then there was a fracture the quadrangular cartilage from the perpendicular plate of the ethmoid and vomer and spur posteriorly. Condition: stable Disposition: PACU Brief History: 70-year-old male patient who fell on his face and displaced his nasal bones backward and caused a comminuted fracture of his septum. This resulted in significant nasal dyspnea. When seen and analyzed it was evident that he was going to need an open reduction of the displaced external fracture and septal fracture and possibly septoplasty. The procedure its risks and complications were explained in detail. These risks included bleeding infection numbness scarring swelling bruising septal hematoma abscess or perforation change in sense of smell nasal dryness recurrent problems need for additional treatment cosmetic change and more serious risk such as heart attack or stroke or not surviving the surgery. With these things understood informed consent was granted. Procedure: Description of procedure: The patient was placed on the operating table in the supine position. Adequate general endotracheal tube anesthesia was obtained. The patient received Ancef IV for prophylaxis and Decadron to help with postoperative edema. Patient was repositioned into a semirecumbent position. His eyes were taped shut. The nose was packed with cottonoids soaked in 12-hour Afrin. Nasal hairs were trimmed with scissors. The cottonoids were removed and the septum and external nose were infiltrated with local utilizing a total of 10 mL of 2% Xylocaine with 1 100,000 epinephrine. The Afrin packs were reapplied to the nose. The patient was then prepped and draped in usual fashion. Timeout was accomplished identifying the patient date of plan procedure allergies fire risk and medications given. With all in agreement the procedure continued. The cottonoids were once again removed from the nose. The external nasal bones were elevated intranasally and with external palpation the bones were elevated and brought back into proper position until he snapped in place. A left hemitransfixion incision was then created with a 15 blade carried down to the septal cartilage. A mucoperichondrial periosteal flap was then raised on the left side. The comminuted nature of the fracture with multiple fracture lines on the cartilage anteriorly was noted. As the dissection was proceeded more inferior and posterior there was evidence of overriding cartilage off the crest to the left side and then there was a severe fracture at the junction of the quadrangular cartilage and perpendicular plate of the ethmoid and vomer. There was also loose bony fragments posteriorly. The cartilage was freed from the attachment inferiorly removing approximately 2 to 3 mm of height that were overriding the crest. The anterior segment of cartilage was then able to be rotated back into proper position resting on the crest. The bony segments that were fractured were removed posteriorly. Drain hole was created to prevent hematoma formation. This was done inferiorly on the left side. The septum now rested in the good straight midline position. The nasal bones were once again checked for proper positioning. A Pennington elevator was able to be passed through both nasal chambers to the nasopharynx without obstruction. The left hemitransfixion incision was closed loosely with interrupted 4-0 chromic suture. 2 septal splints were cut to proper size coated with Neosporin and 1 was applied each side of the septum. These were then sutured in a through and through fashion with 3-0 Prolene. 2 Telfa packs were cut to size coated with Neosporin and 1 was applied each side of the nose extending high up into the nose on both sides to keep the nasal fragments from falling inward. The external nose was cleansed dried and then benzoin was applied followed by 2 layers of paper tape. Then an external splint was applied. A drip pad was applied to the end of the patient's nose. The mouth was suctioned clean. There was no evidence of active bleeding. The drapes were removed and the patient was returned to the anesthesiologist for wake-up and extubation. He tolerated the procedure well had an estimated blood loss of 20 mL and arrived in recovery in stable condition.
--- NOTE | 2020-07-03 12:26 | SUR.PHASEI ---
PT SLEEPS QUIETLLY WITH GOOD RESP EFFORT, NO DISTRESS NASAL DRIP DRESSING IN PLACE AND NASAL CAST ON VSS.
--- NOTE | 2020-07-03 12:30 | SUR.PHASEI ---
PT AWAKE DENIES PAIN AND NAUSEA, PT ON RA TRIAL, VSS
[2020-07-03] MEDS: TRAMadol 50 mg Tablet PO (13:50)
--- NOTE | 2020-07-03 15:16 | ANE.PACU2 ---
Inpatient post-anesthesia follow up: Airway intact: Yes Vital signs: Temperature 98.1 F Pulse Rate 66 Respiratory Rate 18 Blood Pressure 170/94 Pulse Oximetry 95 Oxygen Delivery Me thod Room Air Oxygen Flow Rate 8 Fraction of Inspir ed Oxygen Hydration adequate: Yes Nausea and vomiting: No Pain level: 2 Mental status: Baseline
== END 2020-07-03 14:35 | disposition home or self-care (01) ==
PROVIDERS: PCP Family Medicine; Visit Provider Otolaryngology
PROC: 0NSB04Z Reposition Nasal Bone with Internal Fixation Device, Open Approach (ICD-10-PCS; CPT 21330; principal; 2020-07-03 10:30)
DX: S02.2XXA Fracture of nasal bones, initial encounter for closed fracture (principal); X58.XXXA Exposure to other specified factors, initial encounter; J44.9 Chronic obstructive pulmonary disease, unspecified; I25.10 Atherosclerotic heart disease of native coronary artery without angina pectoris; Z95.5 Presence of coronary angioplasty implant and graft; I11.0 Hypertensive heart disease with heart failure; I50.20 Unspecified systolic (congestive) heart failure
CPT/HCPCS: 21335; 93005; 96365; J0690; J1100; J2704; J3010; J3490; J7030

== ENCOUNTER → 2021-10-14 11:20 | Outpatient (BNVA) | payer MEDICARE, SELFPAY | PROVIDERS: PCP Family Medicine; Visit Provider Internal Medicine Cardiovascular Disease | DX: R06.02 Shortness of breath (principal); N18.9 Chronic kidney disease, unspecified; E78.5 Hyperlipidemia, unspecified; Z79.01 Long term (current) use of anticoagulants | CPT/HCPCS: 36415; 80048; 80061; 80076; 83880; 84443; 85025; 99215 ==

== ENCOUNTER 2022-01-02 13:03 | Outpatient (CLI) | payer MEDICARE, SELFPAY ==
--- NOTE | 2022-01-02 13:30 | USCV_ITS ---
Bolivar Combs Age: 71 Gender: M : 1950 Exam Date: 01/02/2022 13:44 Ordering Phys: Suri Lopez MD ([email or web address]) Technologist: Mallory Garcia [place] [facility] [place]: [place] EF >40% BP: 146 / 95 HR: 67 Rhythm: Sinus Technical Quality: Adequate MEASUREMENTS (Male / Female) Normal Values 2D ECHO LV Diastolic Diameter PLAX 4.4 cm 4.2 - 5.9 / 3.9 - 5.3 cm LV Systolic Diameter PLAX 3.9 cm IVS Diastolic Thickness 1.1 cm 0.6 - 1.0 / 0.6 - 0.9 cm IVS Systolic Thickness 1.3 cm LVPW Diastolic Thickness 1.2 cm 0.6 - 1.0 / 0.6 - 0.9 cm LVPW Systolic Thickness 1.5 cm LVOT Diameter 2.0 cm LV Ejection Fraction 2D Teich 27.6 % LV Ejection Fraction MOD 2C 34.3 % LV Ejection Fraction 2C AL 35.6 % LA Diameter 3.1 cm LA Width 3.3 cm LA Height 6.3 cm RA Width 3.7 cm RA Height 4.2 cm Aorta at Sinotubular Diameter 3.5 cm IVC Diameter 1.7 cm M-MODE MV E Point Septal Separation 1.3 cm DOPPLER AV Peak Velocity 108.0 cm/s LVOT Peak Velocity 95.0 cm/s AV Area Cont Eq vti 2.9 cm squared AV Area Cont Eq pk 2.9 cm squared MV Peak Velocity 121.0 cm/s MV Area PHT 3.2 cm squared Mitral E to A Ratio 0.6 MV E' Velocity 39.0 cm/s Mitral E to MV E' Ratio 11.5 Mitral E to LV E' Lateral Ratio 10.4 Mitral E to LV E' Septal Ratio 13.2 TR Peak Velocity 212.8 cm/s TR Peak Gradient 18.1 mmHg Right Atrial Pressure 3.0 mmHg Pulmonary Artery Systolic Pressu 21.1 mmHg PV Peak Velocity 121.0 cm/s RV Acceleration Time 0.1 s RV Ejection Time 0.3 s RV AcT/ET 0.4 FINDINGS Left Ventricle Diffuse hypokinesia left ventricle, most of the apex with an ejection fraction of 35%.Grade I/IV diastolic dysfunction (abnormal relaxation filling pattern), normal to mildly elevated filling pressures. Right Ventricle The right ventricle is normal in size and function. Right Atrium The right atrium is normal in size. Left Atrium Mildly increased left atrial size. Mitral Valve Thickened mitral valve. Mild mitral annular calcification. Aortic Valve Thickened aortic valve. Tricuspid Valve Mild tricuspid valve regurgitation. Estimated pulmonary artery peak systolic pressure 21 mmHg Pulmonic Valve No gross abnormalities noted Pericardium Normal pericardium without effusion. Aorta Normal ascending aorta dimension. IVC The inferior vena cava appears normal. CONCLUSIONS Diffuse hypokinesia left ventricle, most of the apex with an ejection fraction of 35%. Grade I/IV diastolic dysfunction (abnormal relaxation filling pattern), normal to mildly elevated filling pressures. Mildly increased left atrial size. Thickened mitral valve. Mild mitral annular calcification. Thickened aortic valve. Mild tricuspid valve regurgitation. Estimated pulmonary artery peak systolic pressure 21 mmHg. There is no pericardial effusion. There are no intracardiac masses. Compared to the study from 07/03/2013 there is slight drop in the LV ejection fraction, from 40% to 35% Dr Suri Lopez MD [facility] (Electronically Signed) Final Date: 02 January 2022 18:55 S
== END 2022-01-02 13:04 | disposition home or self-care (01) ==
LOC: RAD 13:06
PROVIDERS: PCP Family Medicine; Visit Provider Internal Medicine Cardiovascular Disease
DX: R06.09 Other forms of dyspnea (principal); I05.9 Rheumatic mitral valve disease, unspecified; I35.8 Other nonrheumatic aortic valve disorders; I07.1 Rheumatic tricuspid insufficiency
CPT/HCPCS: 93306

== ENCOUNTER → 2022-01-08 13:44 | Outpatient (BNVA) | payer MEDICARE, SELFPAY | PROVIDERS: PCP Family Medicine; Visit Provider Internal Medicine Cardiovascular Disease | DX: I25.5 Ischemic cardiomyopathy (principal); E78.5 Hyperlipidemia, unspecified; Z86.73 Personal history of transient ischemic attack (TIA), and cerebral infarction without residual deficits; I11.0 Hypertensive heart disease with heart failure; I50.22 Chronic systolic (congestive) heart failure; I25.10 Atherosclerotic heart disease of native coronary artery without angina pectoris; R06.02 Shortness of breath; F17.290 Nicotine dependence, other tobacco product, uncomplicated | CPT/HCPCS: 36415; 80048; 83880; 99214 ==

== ENCOUNTER → 2022-02-09 14:30 | Outpatient (BNVA) | payer MEDICARE, SELFPAY | PROVIDERS: PCP Family Medicine; Visit Provider Nurse Practitioner Family | DX: I25.5 Ischemic cardiomyopathy (principal); I11.0 Hypertensive heart disease with heart failure; I50.22 Chronic systolic (congestive) heart failure; F17.290 Nicotine dependence, other tobacco product, uncomplicated | CPT/HCPCS: 99214 ==

== ENCOUNTER 2022-03-04 07:35 | Outpatient (CLI) | payer MEDICARE, SELFPAY ==
[2022-03-04 07:54] VITALS: BMI 21.7
--- NOTE | 2022-03-04 07:56 | NMCV_ITS ---
NM antonieta perf SPECT r/s* [id number] Bolivar Combs Age: 72 Gender: M : 1950 Exam Date: 03/04/2022 08:50 Ordering Phys: Suri Lopez MD ([email or web address]) Technologist: MELVI Muñiz Exam Location: [facility] Indications: SHORTNESS OF BREATH; ABNORMAL EKG STRESS TEST Please see separate stress test report in [facility] for full findings IMAGE PROTOCOL Rest/Stress 1 Lexiscan Day Radiopharmaceutical Dose (mCi) Administration Site Administered by Rest: Tc-99m 10.7 IV MELVI Muñiz Sestamibi Stress:Tc-99m 32.5 IV MELVI Rosario Sestamibi Rest: 04-Mar-2022 60 Discovery 630 Stress: 04-Mar-2022 30 Discovery 630 0.4mg Lexiscan. Images obtained in supine and prone position. SPECT RESULTS Technical Quality: Excellent Raw Data Analysis: Normal Image Corrections: No attenuation or motion correction applied Summed Stress Score: 25 Summed Rest Score: 30 Summed Difference Score: 0 PERFUSION FINDINGS Moderate to large area of severely decreased tracer uptake in the mid and apical anterior, mid anteroseptal, mid inferoseptal, and all apical segments. No significant reversibility was noted in these regions. FUNCTIONAL RESULTS (calculated via Gated SPECT) Stress Image LV EF (%): 64 Stress EDV (mL):108 TID: 0.9 Stress ESV (mL):39 FUNCTIONAL FINDINGS: Segmental wall motion analysis revealed mild diffuse hypokinesia of the apex. IMPRESSIONS 1. Myocardial perfusion imaging revealing moderate to large area of persistent decreased tracer uptake in the anterior, anteroseptal, inferoseptal, anterior and apical regions, suggesting myocardial scarring versus attenuation artifact. 2. Normal LV ejection fraction 64%. 3. LV wall motion analysis revealing mild diffuse hypokinesia of the LV apex. 4. Normal LV volume No significant coronary ischemia, based on the above findings. No similar previous studies are available for comparison Dr Suri Lopez MD FACC (Electronically Signed) Final Date: 04 March 2022 16:28 S
--- NOTE | 2022-03-04 07:56 | ECG_ITS ---
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 Interpretive Statements NAME OF STUDY: LEXISCAN SESTAMIBI STRESS TEST INDICATION: Shortness of Breath; Abnormal EKG RESULTS TO DOUG SNOWDEN MD PROCEDURE: At the baseline, the EKG revealed sinus bradycardia with a rate of 57 bpm. Features of anteroseptal IA. Diffuse T wave changes in the anterolateral leads. The baseline heart was 66 bpm with a blood pressue of 173/83 mm of Hg Lexiscan was infused over a period of 20 seconds. A total of 0.4 milligrams of Lexiscan was infused. The stress phase was continued for a total of 5 minutes. Heart rate at the end of the stress phase was 68 bpm with a blood pressure 128/77 mm of Hg. The EKG at the peak infusion revealed no significant changes. Sestamibi was injected 20 seconds after the Lexiscan infusion. Heart rate at the end of the recovery phase was 68 bpm with a blood pressure of 140/68 mm of Hg. CONCLUSION: 1. No significant EKG changes with the LexiScan infusion 2. No LexiScan induced chest pain or cardiac arrhythmia 3. Normal blood pressure and heart rate response 4. Sestamibi/sestamibi perfusion scan pending; see separate report. Electronically Signed On 03-13-2022 11:31:23 STRATEGIC ACCOUNT EXECUTIVE by Suri Lopez M.D. [id number]
[2022-03-04] MEDS: regadenoson 0.4 Mg/5 ml Syringe IVP (09:19)
[2022-03-04 09:45] VITALS: BP 146/68; PULSE 62
== END 2022-03-04 07:36 | disposition home or self-care (01) ==
PROVIDERS: PCP Family Medicine; Visit Provider Internal Medicine Cardiovascular Disease
DX: R06.02 Shortness of breath (principal); R94.31 Abnormal electrocardiogram [ECG] [EKG]
CPT/HCPCS: 36415; 78452; 93017; 96374; A9500; J2785

== ENCOUNTER 2022-08-30 21:01 | Emergency (ER) | payer MEDICARE, SELFPAY ==
[2022-08-30] VITALS (25 sets, daily range): BP systolic 156–239; BP diastolic 80–187; PULSE 75–106; RESP 14–26; O2SAT 86–97; BMI 20.5
--- NOTE | 2022-08-30 21:02 | CTR_ITS ---
PROCEDURE INFORMATION: Exam: CT Head Without Contrast Exam date and time: 08/30/2022 8:53 PM Age: 72 years old Clinical indication: Stroke-like symptoms; Altered mental status/memory loss; RT upper extremity and RT lower extremity weakness; Additional info: Per EMS patient became unresponsive at 2000 at home. Arrives to er in complete delrious state with EMS reporting RT upper and lower ext weakness. TECHNIQUE: Imaging protocol: Computed tomography of the head without contrast. Radiation optimization: All CT scans at this facility use at least one of these dose optimization techniques: automated exposure control; mA and/or kV adjustment per patient size (includes targeted exams where dose is matched to clinical indication); or iterative reconstruction. Other technique: STROKE PROTOCOL was implemented. REPORTING DATA: Count of CT and Cardiac NM exams in prior 12 months: This patient has received [address] and 0 known cardiac nuclear medicine studies in the 12 months prior to the current study. COMPARISON: CT head wo con* [id number] 06/21/2020 10:37 PM RADIATION DOSE METRICS: Total DLP (mGy-cm): 1233.85 FINDINGS: Brain: Chronic encephalomalacia is now present in the left occipital lobe. No acute infarct. No hemorrhage. Stable involutional changes of the brain. No mass effect. Cerebral ventricles: Stable ventricular size. No ventriculomegaly. Paranasal sinuses: No significant inflammation. No fluid levels. Mastoid air cells: Visualized mastoid air cells are well aerated. Bones/joints: Unremarkable. No acute fracture. Soft tissues: Unremarkable. Other findings: Study is motion degraded. CT/CT head thrombolytic [id number] IMPRESSION: 1. No acute intracranial abnormality. 2. Chronic encephalomalacia is now seen in the left occipital lobe. ASSESSMENT: ASPECTS ([place] Stroke Program Early CT Score) is 10.
--- NOTE | 2022-08-30 21:05 | ED_ITS ---
HPI - Neuro Symptoms/Deficit General: Chief Complaint: Neuro Symptoms/Deficit Stated Complaint: stroke Time Seen by Provider: 08/30/22 21:02 Limitations: altered mental status History of Present Illness: Mr. Combs is a 72-year-old gentleman with history of tobaccoism, hypertension, CAD, systolic heart failure presenting to the emergency department for st rokelike symptoms with altered mental status. Per EMS report patient was last known normal at 8 PM. He went outside and came back and was quite altered. Left-sided gaze preference and mild facial droop, right-sided hemiparesis. No reported seizure history. History otherwise limited by symptoms Last Observed Normal: 20:00 Timing confirmed by: spouse History of same: No Severity: severe On Anticoagulants: No Review of Systems General: Reports: ROS unobtainable due to mental status [facility] ED PFSH: Medical History CAD (coronary artery disease) HTN (hypertension) with goal to be determined Systolic heart failure Surgical History S/P PTCA (percutaneous transluminal coronary angioplasty) Family History Father Cancer Brother CAD (coronary artery disease) Stroke Brother CAD (coronary artery disease) Stroke Daughter Chronic kidney disease (CKD) Diabetes Mother Lung disease Family/Other Lung disease Denies family history of Clotting disorder Dementia Suicide Anesthesia complication Bleeding disorder Social History Smoking and tobacco status: current every day smoker cigars Cigars smoked per week: 30 Years smoked cigars: 15 Alcohol intake: never Substance/Drug Use: current NIH stroke score NIHSS: Level Of Consciousness - 1a: 2 Level Of Consciousness Questions - 1b: Neither Correct Level Of Consciousness Commands - 1c: Neither Correct Best Gaze - 2: Forced Deviation Visual Keller - 3: Partial Hemianopia Facial Palsy - 4: Minor Paralysis Motor Arm Right - 5: No Movement Motor Arm Left - 5: No Drift Motor Leg Right - 6: No Movement Motor Leg Left - 6: No Drift Limb Ataxia - 7: Present In One Limb Sensory - 8: Severe To Total Loss Best Language - 9: Mute; Global Aphasia Dysarthia - 10: Severe Dysarthia Extinction And Inattention - 11: 2 Score: Total Score: 28 Physical Exam Const: GENERAL APPEARANCE: well developed, combative and ill appearing HENMT: COMMON NORMALS: normocephalic and atraumatic HEAD & SCALP: normocephalic and atraumatic Eye: COMMON NORMALS: conjunctivae normal CONJUNCTIVA: Yes conjunctivae normal SCLERA: sclerae normal Neck/C-Spine: COMMON NORMALS: supple GENERAL: Yes trachea midline Resp: COMMON NORMALS: clear to auscultation bilaterally EFFORT & INSPECTION: Yes able to speak in complete sentences AUSCULTATION: clear to auscultation bilaterally Cardio: COMMON NORMALS: regular rate and regular rhythm RATE: regular rate RHYTHM: regular rhythm GI: COMMON NORMALS: Soft to palpation PALPATION: Yes Soft to palpation and No Tenderness to palpation present (GI) Extremity: GENERAL: Yes normal exam except as noted and No edema Neuro: SENSORIUM/ORIENTATION: Yes Orientation impaired Course Vital Signs: Vital signs: Vital Signs Pulse Rate 103 H 08/31/22 00:00 Respiratory Rate 16 08/31/22 00:00 Blood Pressure 137/84 08/31/22 00:00 Pulse Oximetry 94 08/31/22 00:00 Oxygen Delivery Me thod Nasal Cannula 08/30/22 23:45 Oxygen Flow Rate 3 08/30/22 23:45 MDM - Neuro Symptoms/Deficit Medical Decision Making 72-year-old gentleman presenting with significant strokelike symptoms. Exam as above. Limited exam secondary to patient's inability to follow commands. Left- sided gaze deviation and mild facial droop, right loss of sensation and hemiparesis. Patient brought to CT scanner and CT head negative for acute hemorrhage. Patient is quite hypertensive and antihypertensives ordered. Additionally anxiolysis ordered as patient is quite agitated limiting exam and ED evaluation. Discussed with [facility] stroke. Despite high NIHSS patient is a candidate for tPA. Discussed with patient's family and risk and benefit discussed. We will proceed with tPA. Additional etiologies were considered however no reported trauma, infectious disease seems less likely given white blood cell count, seizure/postictal state also seems less likely given absence of weakness seizure-like activity. The patient did lose continence however metabolic panel demonstrates no abnormality that we would typically see in seizure. Additional antihypertensives ordered and it was challenging to control patient's blood pressure do satisfactory level for tPA administration however eventually with Cardene drip we were able to proceed. Challenging situation given patient's mental state. Ultimately I believe that risks of intubation for neurologic outcome are prohibitive even with a risk of suboptimal angiography. Patient is protecting his airway. CTA is significant motion artifact. [facility] stroke neurologist reviewed images as well as my review shows concern for left large vessel occlusion given paucity of vessels on the left mid to posterior brain. Read identifies as normal however given patient's symptomatology, profound degree of deficit, and need for further neurology evaluation I believe that patient requires transfer for higher level of care. Discussed with patient's family who is agreeable with plan. Given possibility of acute intervention with endovascular retrieval patient r equires emergent transfer via quickest means possible. Transferred in critical condition with perhaps mild improvement in neurologic function with movement of right lower extremity. Patient accepted by Dr. Flor at [facility] in [place]. Subsequent to transfer patient's urinalysis with mild hematuria likely secondary to catheter though should be followed in the outpatient setting, no evidence of urinary tract infection. Urine drug screen positive for amphetamines and THC. In examination of patient's medication list he is on escitalopram however this does not typically trigger false positives for urine drug screen amphetamines. Within the limitations of urine drug screen this may provide supplemental information regarding level of agitation though I do not believe that acute intoxication/toxidrome is sufficient to explain stroke symptoms. Medical Records I reviewed the patient's medical records. Lab Data I reviewed the patient's lab results. 08/30/22 20:30 08/30/22 20:[address] 08/30/22 21:02 IMPRESSION: 1. No acute intracranial abnormality. 2. Chronic encephalomalacia is now seen in the left occipital lobe. ASSESSMENT: ASPECTS ([place] Stroke Program Early CT Score) is 10. Head/Neck CTA 08/30/22 21:39 IMPRESSION: No stenosis or occlusion. IMPRESSION: 1. No stenosis or occlusion. 2. There is a 5 mm solid nodule left lung apex. For patients at low risk (minimal or absent history of smoking and of other known risk factors), no routine follow-up is indicated. For patients at high risk (history of smoking or of other known risk factors), consider optional CT Chest at 12 months. (Reference: Lupe) REFERENCES: 1. Lupe Lewis et al. Guidelines for Management of Incidental Pulmonary Nodules Detected on CT Images: From the Fleischner Society 2017. Radiology. 2017;284(1):228-243. 2. NASCET CRITERIA. The degree of stenosis in the cervical segment of the internal carotid artery is based on NASCET criteria. Normal is no stenosis. Mild is less than 50% stenosis. Moderate is 50-69% stenosis. Severe is 70% to 99% stenosis. Total occlusion is no detectable patent lumen. Laboratory Results WBC 8.3 10^3/uL (4.0-10.0) 08/30/22 20:30 RBC 4.43 10^6/uL (4.1-5.3) 08/30/22 20: Hgb 13.6 g/dL (11.7-16.6) 08/30/22 20:30 Hct 40.3 % (42.0-52.0) L 08/30/22 20: MCV 91.0 fl (80-94) 08/30/22 20: MCH 30.7 pg (28.0-34.0) 08/30/22 20: MCHC 33.7 g/dL (30.0-36.0) 08/30/22 20: RDW 13.2 % (12.1-15.1) 08/30/22 20:30 Plt Count 284 10^3/cmm (130-400) 08/30/22 20:30 MPV 10.5 fL (7.4-10.4) H 08/30/22 20:30 Neut % (Auto) 43.6 % 08/30/22 20:30 Lymph % (Auto) 42.7 % 08/30/22 20:30 Overton % (Auto) 10.2 % 08/30/22 20:30 Eos % (Auto) 1.8 % 08/30/22 20:30 Baso % (Auto) 0.7 % 08/30/22 20:30 Neut # (Auto) 3.60 10^3/uL (1.8-7.7) 08/30/22 20:30 Lymph # (Auto) 3.5 10^3/uL (0.8-4.8) 08/30/22 20:30 Overton # (Auto) 0.8 10^3/uL (0.2-0.9) 08/30/22 20:30 Eos # (Auto) 0.2 10^3/uL (0.0-0.8) 08/30/22 20:30 Baso # (Auto) 0.1 10^3/uL (0.0-0.1) 08/30/22 20:30 Nucleated RBC % (auto) 0 % 08/30/22 20:30 Nucleated RBCs # 0.0 /100WBC 08/30/22 20:30 PT 13.20 SECONDS (12.1-14.9) 08/30/22 21:15 INR 0.97 (0.8-1.2) 08/30/22 21:15 APTT 27.9 SECONDS (23.9-36.7) 08/30/22 21:15 Sodium 142 mmol/L (136-145) 08/30/22 20:30 Potassium 3.5 mmol/L (3.5-5.1) 08/30/22 20:30 Chloride 103 mmol/L (98-107) 08/30/22 20:30 Carbon Dioxide 25 mmol/L (22-29) 08/30/22 20:30 Anion Gap 17.5 (5-19) 08/30/22 20:30 BUN 10 mg/dL (8-23) 08/30/22 20:30 Creatinine 1.2 mg/dL (0.7-1.2) 08/30/22 20:30 GFR Calculation Not Reportable 08/30/22 20:30 Glucose 110 mg/dL (65-115) 08/30/22 20:30 Calculated Osmolality 294 mOsm/kg (285-295) 08/30/22 20:30 Calcium 9.2 mg/dL (8.5-10.5) 08/30/22 20:30 Total Bilirubin 0.6 mg/dL (0.15-1.2) 08/30/22 20:30 AST 28 U/L (0-40) 08/30/22 20:30 ALT 19 U/L (0-41) 08/30/22 20:30 Alkaline Phosphatase 91 U/L (40-130) 08/30/22 20:30 Total Protein 6.8 g/dL (6.6-8.7) 08/30/22 20:30 Albumin 4.0 g/dL (3.5-5.2) 08/30/22 20:30 Globulin 2.8 g/dL (1.3-4.6) 08/30/22 20:30 Urine Color Colorless (Yellow) 08/30/22 23:15 Urine Appearance Sl hazy (CLEAR) A 08/30/22 23:15 Urine pH 8 (5-7) H 08/30/22 23:15 Ur Specific Grants 1.010 (1.005-1.030) 08/30/22 23:15 Urine Protein Neg (Negative) 08/30/22 23:15 Urine Glucose (UA) 2+ (Normal) H 08/30/22 23:15 Urine Ketones Negative (Negative) 08/30/22 23:15 Urine Blood 2+ (Negative) H 08/30/22 23:15 Urine Nitrate Negative (Negative) 08/30/22 23:15 Urine Bilirubin Neg (Negative) 08/30/22 23:15 Prot Sulfosalicylic Acd Negative (Negative) 08/30/22 23:15 Urine Urobilinogen Norm mg/dL (Negative) 08/30/22 23:15 Ur Leukocyte Esterase Negative (Negative) 08/30/22 23:15 Urine RBC 5-10 /hpf (0-2) H 08/30/22 23:15 Urine WBC None /hpf (0-5) 08/30/22 23:15 Ur Squamous Epith Cells None /hpf (0-5) 08/30/22 23:15 Amorphous Sediment Not Reportable 08/30/22 23:15 Urine Bacteria None /hpf (NONE) 08/30/22 23:15 Urine Opiates Screen Negative ng/mL (Negative) 08/30/22 23:15 Ur Barbiturates Screen Negative ng/mL (Negative) 08/30/22 23:15 Ur Phencyclidine Scrn Negative ng/mL (Negative) 08/30/22 23:15 Ur Amphetamines Screen Positive ng/mL (Negative) H 08/30/22 23:15 U Benzodiazepines Scrn Negative ng/mL (Negative) 08/30/22 23:15 Urine Cocaine Screen Negative ng/mL (Negative) 08/30/22 23:15 U Marijuana (THC) Screen Positive ng/mL (Negative) H 08/30/22 23:15 Critical Care Time Critical Care Time: Critical Care Time: Yes Total Critical Care Time: 80 Attestation: Due to a high probability of clinically significant, possibly life threatening deterioration, the patient required my highest level of attention and preparedness to intervene emergently and I personally spent this critical care time directly and personally managing the patient. This critical care time included obtaining a history; examining the patient; pulse oximetry; ordering and review of laboratory and imaging studies; arranging urgent treatment with development of a management plan; evaluation of patient's response to treatment; frequent reassessment; and, discussions with other providers as applicable. It was exclusive of separately billable procedures. Primary system involved is neuro. Discharge Plan Discharge Patient Disposition: Transfer to ED Clinical Impression: Acute ischemic stroke, Acute alteration in mental status Condition: Critical Prescriptions: No Action nitroglycerin [Nitrostat] 0.4 mg tablet, sublingual 0.4 mg SUBLINGUAL Q5M PRN (Reason: Chest Pain) carvedilol 12.5 mg tablet 12.5 mg PO BID Qty: 180 3RF Rx Instructions: must administer with a meal/food clopidogrel 75 mg tablet 75 mg PO DAILY Qty: 90 3RF furosemide 40 mg tablet 40 mg PO DAILY Qty: 90 3RF magnesium oxide 400 mg magnesium capsule 400 mg PO DAILY Qty: 90 3RF simvastatin [Zocor] 40 mg tablet 40 mg PO QDAY Qty: 90 3RF aspirin [Adult Aspirin Regimen] 81 mg tablet,delayed release (DR/EC) 81 mg PO DAILY escitalopram oxalate 10 mg tablet 10 mg PO DAILY spironolactone 25 mg tablet 25 mg PO DAILY Qty: 90 3RF amlodipine 5 mg tablet 5 mg PO DAILY Qty: 90 3RF Rx Instructions: Dose Increased potassium chloride [Klor-Con 10] 10 mEq tablet extended release 30 meq PO DAILY Qty: 270 3RF Entresto 97-103 mg tablet 1 tab PO BID Qty: 180 3RF Referrals: Blue Ricks MD [Primary Care Provider] - Coding Level of Care Code ED Health Support Specialist for Armando Dykes
[2022-08-30 21:13] LABS: Basophils # 0.1 10^3/uL (0.0-0.1); Basophils % 0.7 %; Eosinophils # 0.2 10^3/uL (0.0-0.8); Eosinophils % 1.8 %; Hematocrit 40.3 % (42.0-52.0); Hemoglobin 13.6 g/dL (11.7-16.6); Lymphocytes # 3.5 10^3/uL (0.8-4.8); Lymphocytes % 42.7 %; Mean Corpuscular HGB Conc 33.7 g/dL (30.0-36.0); Mean Corpuscular Hemoglobin 30.7 pg (28.0-34.0); Mean Platelet Volume 10.5 fL (7.4-10.4); Monocytes # 0.8 10^3/uL (0.2-0.9); Monocytes % 10.2 %; Neutrophils % 43.6 %; Nucleated Red Blood Cells % 0 %; Platelet Count 284 10^3/cmm (130-400); Red Blood Count 4.43 10^6/uL (4.1-5.3); Red Cell Distribution Width 13.2 % (12.1-15.1); White Blood Count 8.3 10^3/uL (4.0-10.0)
[2022-08-30] MEDS: labetalol 5 mg/mL SDV 20mL 20 MG IVP ×2 (21:14→21:41)
--- NOTE | 2022-08-30 21:21 | ECG_ITS ---
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 Measurements Intervals Douglas Rate: 67 P: 57 OR: 157 QRS: 41 QRSD: 111 T: 93 QT: 375 QTc: 396 Interpretive Statements SINUS RHYTHM ANTERIOR MYOCARDIAL INFARCTION , PROBABLY RECENT [40+ ms Q WAVE AND/OR ST/T ABNORMALITY IN V3/V4] ACUTE [place] Compared to ECG 07/03/2020 10:11:50 Myocardial infarct finding now present T-wave abnormality no longer present Possible ischemia no longer present Electronically Signed On 08-31-2022 18:36:32 CDT by Suri Lopez M.D. [id number]
[2022-08-30 21:30] LABS: INR 0.97 (0.8-1.2)
[2022-08-30 21:31] LABS: Partial Thromboplastin Time 27.9 SECONDS (23.9-36.7)
[2022-08-30 21:38] LABS: Alanine Aminotransferase 19 U/L (0-41); Alkaline Phosphatase 91 U/L (40-130); Aspartate Amino Transferase 28 U/L (0-40); Blood Urea Nitrogen 10 mg/dL (8-23); Calcium 9.2 mg/dL (8.5-10.5); Carbon Dioxide 25 mmol/L (22-29); Chloride 103 mmol/L (98-107); Globulin 2.8 g/dL (1.3-4.6); Glucose 110 mg/dL (65-115); Osmolality Calculated 294 mOsm/kg (285-295); Sodium 142 mmol/L (136-145); Total Bilirubin 0.6 mg/dL (0.15-1.2); Total Protein 6.8 g/dL (6.6-8.7)
--- NOTE | 2022-08-30 21:39 | CTR_ITS ---
PROCEDURE INFORMATION: Exam: CT Angiography Head With Contrast Exam date and time: 08/30/2022 10:39 PM Age: 72 years old Clinical indication: Cognitive deficit and weakness; Altered mental status; Patient HX: Per EMS patient became unresponsive at 1999 at home. Arrives to er in complete delrious state with EMS reporting RT upper and lower ext weakness. ; Additional info: Stroke like symptoms, post tpa, ? large vessel occlusion TECHNIQUE: Imaging protocol: Computed tomographic angiography of the head with contrast. 3D rendering (Not supervised by radiologist): MIP and/or 3D reconstructed images were created by the technologist. Radiation optimization: All CT scans at this facility use at least one of these dose optimization techniques: automated exposure control; mA and/or kV adjustment per patient size (includes targeted exams where dose is matched to clinical indication); or iterative reconstruction. Contrast material: OMNI 350; Contrast volume: 100 ml; Contrast route: INTRAVENOUS (IV); REPORTING DATA: Count of CT and Cardiac NM exams in prior 12 months: This patient has received [address] and 0 known cardiac nuclear medicine studies in the 12 months prior to the current study. COMPARISON: CT angio headneck* [id number] 11/10/2018 7:40 PM RADIATION DOSE METRICS: Total DLP (mGy-cm): 534.43 FINDINGS: Limitations: Study is degraded by motion. Limited evaluation. ANTERIOR CIRCULATION: Right internal carotid artery: No definite occlusion. Right middle cerebral artery: No definite occlusion. Right anterior cerebral artery: No definite occlusion. Left internal carotid artery: No definite occlusion. Left middle cerebral artery: No definite occlusion. Left anterior cerebral artery: No definite occlusion. POSTERIOR CIRCULATION: Right vertebral artery: No definite occlusion. Left vertebral artery: No definite occlusion. Basilar artery: No definite occlusion. Right posterior cerebral artery: No definite occlusion. Left posterior cerebral artery: No definite occlusion. Brain: No definite mass, mass effect, or midline shift. Cerebral ventricles: Normal. No ventriculomegaly. PROCEDURE INFORMATION: Exam: CT Angiography Neck With Contrast Exam date and time: 08/30/2022 10:39 PM Age: 72 years old Clinical indication: Cognitive deficit and weakness; Altered mental status; Patient HX: Per EMS patient became unresponsive at 1999 at home. Arrives to er in complete delrious state with EMS reporting RT upper and lower ext weakness. ; Additional info: Stroke like symptoms, post tpa, ? large vessel occlusion TECHNIQUE: Imaging protocol: Computed tomography angiography of the neck with contrast. 3D rendering (Not supervised by radiologist): MIP and/or 3D reconstructed images were created by the technologist. Radiation optimization: All CT scans at this facility use at least one of these dose optimization techniques: automated exposure control; mA and/or kV adjustment per patient size (includes targeted exams where dose is matched to clinical indication); or iterative reconstruction. Contrast material: OMNI 350; Contrast volume: 100 ml; Contrast route: INTRAVENOUS (IV); REPORTING DATA: Count of CT and Cardiac NM exams in prior 12 months: This patient has received [address] and 0 known cardiac nuclear medicine studies in the 12 months prior to the current study. COMPARISON: CT angio headneck* [id number] 11/10/2018 7:40 PM RADIATION DOSE METRICS: Total DLP (mGy-cm): 534.43 FINDINGS: Limitations: Limited evaluation. Study is degraded by motion. Right common carotid artery: No definite occlusion. Right internal carotid artery: No definite occlusion. Right external carotid artery: No definite occlusion. Left common carotid artery: No definite occlusion. Left internal carotid artery: No definite occlusion. Left external carotid artery: No definite occlusion. Right vertebral artery: No definite occlusion. Left vertebral artery: No definite occlusion. Bones/joints: No acute fracture. Soft tissues: Normal. No significant soft tissue swelling. Lungs: 5 mm solid nodule left lung apex series 4, image 70. Minimal atelectasis in the dependent lungs. CT/CT angio headneck* [id number] IMPRESSION: No stenosis or occlusion. IMPRESSION: 1. No stenosis or occlusion. 2. There is a 5 mm solid nodule left lung apex. For patients at low risk (minimal or absent history of smoking and of other known risk factors), no routine follow-up is indicated. For patients at high risk (history of smoking or of other known risk factors), consider optional CT Chest at 12 months. (Reference: Lupe) REFERENCES: 1. Lupe Lewis, et al. Guidelines for Management of Incidental Pulmonary Nodules Detected on CT Images: From the Fleischner Society 2017. Radiology. 2017;284(1):228-243. 2. NASCET CRITERIA. The degree of stenosis in the cervical segment of the internal carotid artery is based on NASCET criteria. Normal is no stenosis. Mild is less than 50% stenosis. Moderate is 50-69% stenosis. Severe is 70% to 99% stenosis. Total occlusion is no detectable patent lumen.
[2022-08-30 21:46] LABS: Anion Gap 17.5 (5-19); Potassium 3.5 mmol/L (3.5-5.1)
[2022-08-30] MEDS: haloperidol inj 5 mg/mL INJ 1 mL 2 MG IVP (21:57)
[2022-08-30] MEDS: LORazepam 2 mg/mL INJ 1 mL 1 MG IVP (21:57)
[2022-08-30] MEDS: labetalol 5 mg/mL SDV 20mL 40 MG IVP (22:00)
[2022-08-30] MEDS: midazolam 1 mg/mL INJ 2 mL 2 MG IVP (22:16)
[2022-08-30] MEDS: nicardipine 20 MG/200 ML PREMIX 50 MG IV (22:21)
[2022-08-30] MEDS: iohexol 350 mg/mL 500 mL Btl (per mL) IV (22:52)
--- NOTE | 2022-08-30 23:37 | PC.NURSE ---
PT PLACED IN SOFT RESTRAINTS ON LEFT ARM AT 2140. DR. MAHONEY WAS FACE TO FACE AT 2214.
[2022-08-30 23:44] LABS: Bilirubin Urine Neg (Negative); Blood Urine 2+ (Negative); Glucose Urine UA 2+ (Normal); Ketones Urine Negative (Negative); Leukocyte Esterase Urine Negative (Negative); Nitrate Urine Negative (Negative); Protein Urine Neg (Negative); Urine Appearance SL Hazy (CLEAR); Urine Color Colorless (Yellow); Urobilinogen Urine Norm (Negative); pH Urine 8 (5-7)
[2022-08-30 23:45] LABS: Add Urine Microscopic? YES; Sulfosalicylic Acid Urine Negative (Negative)
[2022-08-30 23:52] LABS: Amphetamines Screen Urine Positive (Negative); Barbiturates Screen Urine Negative (Negative); Benzodiazepines Screen Urine Negative (Negative); Cocaine Screen Urine Negative (Negative); Opiate Screen Urine Negative (Negative); PCP Screen Urine Negative (Negative); THC Screen Urine Positive (Negative)
[2022-08-30] MEDS: sodium chloride 0.9% 50 ML 200 ML IV (23:59)
[2022-08-31] VITALS: BP 137/84; PULSE 103; RESP 16; O2SAT 94
--- NOTE | 2022-08-31 00:25 | PC.NURSE ---
sent nicardipine drip with air evac RN. stopped infusion at time of discharge.
== END 2022-08-31 00:21 ==
PROVIDERS: Emergency Provider Emergency Medicine; PCP Family Medicine
DX: I63.9 Cerebral infarction, unspecified (principal); R41.82 Altered mental status, unspecified; F17.210 Nicotine dependence, cigarettes, uncomplicated; Z79.899 Other long term (current) drug therapy
CPT/HCPCS: 51702; 70450; 70496; 70498; 80053; 80306; 81001; 85025; 85610; 85730; 93005; 96365; 96366; 96367; 96375; 96376; 99291; 99292; J1630; J2060; J2250; J2997; J3490; Q9967